=== PATIENT | male | born 1980 | race Caucasian/White ===

== ENCOUNTER 2020-06-09 14:44 | Emergency (ER) | payer OTHER ==
[2020-06-09 15:17] LABS: HEMOGLOBIN 16.1 gm/dl (14.0-17.5); RED BLOOD COUNT 5.14 M/UL (4.20-5.50); WHITE BLOOD COUNT 9.3 K/UL (4.5-11.0)
[2020-06-09 15:36] LABS: BUN/CREATININE RATIO 13 (0-10)
== END 2020-06-09 16:53 | disposition home or self-care (01) ==
LOC: ER1 14:44
DX: R10.9 Unspecified abdominal pain (principal); F17.210 Nicotine dependence, cigarettes, uncomplicated
CPT/HCPCS: 80053; 81001; 85025; 99284

== ENCOUNTER 2020-09-03 09:58 | Emergency (ER) | payer OTHER | END 2020-09-03 13:00 | disposition home or self-care (01) | LOC: ER1 09:58 | DX: H10.9 Unspecified conjunctivitis (principal) | CPT/HCPCS: 99282 ==

== ENCOUNTER 2020-10-04 14:10 | Emergency (ER) | payer OTHER | END 2020-10-04 15:06 | disposition left against medical advice (07) | LOC: ER1 14:10 | DX: Z53.21 Procedure and treatment not carried out due to patient leaving prior to being seen by health care provider (principal) ==

== ENCOUNTER → 2020-10-30 | Outpatient (CLI) | payer OTHER | LOC: KOH-I 15:52 | DX: J20.9 Acute bronchitis, unspecified (principal); Z87.09 Personal history of other diseases of the respiratory system | CPT/HCPCS: 71046 ==

== ENCOUNTER 2021-05-11 13:58 | Emergency (ER) | payer OTHER ==
[2021-05-11] MEDS ORDERED: ERYTHROMYCIN O3.5 GM OU (16:21)
== END 2021-05-11 17:04 | disposition home or self-care (01) ==
LOC: ER1 13:58
DX: H16.133 Photokeratitis, bilateral (principal); F17.200 Nicotine dependence, unspecified, uncomplicated
CPT/HCPCS: 99283